=== PATIENT | male | born 1965 | race Caucasian/White ===

== ENCOUNTER 2025-09-24 13:14 | Emergency (ER) | payer OTHER, SELFPAY ==
[2025-09-24] VITALS (9 sets, daily range): BP systolic 126–147; BP diastolic 77–95; PULSE 63; BMI 35.9
[2025-09-24 13:21] LABS: Glucose - Point of Care 136 mg/dl (70-99)
--- NOTE | 2025-09-24 13:37 | ED.GENMED ---
History of Present Illness
<Amy Weeks PA-C - Last Filed: 09/24/25 18:31>
General
Chief Complaint: Fainting/Passed Out
Source: patient
Exam Limitations: none
Time Seen by Provider: 09/24/25 13:28
History of Present Illness
History of Present Illness:
60yoM with no significant past medical history (has not seen a PCP in many years) presenting via EMS for evaluation after a syncopal episode. Patient was driving to work this afternoon when he suddenly became dizzy and felt like the room was
spinning. He pulled over and started vomiting. He then had a syncopal episode. He was awake and alert on EMS arrival. He denies any chest pain or shortness of breath. He had some left ear discomfort earlier today as well as left arm pain for
the past 2 weeks. Dizziness is worse with head movement, particularly if he moves his head to the left.
Past History
<Amy Weeks PA-C - Last Filed: 09/24/25 18:31>
Past History
ED Past Medical History: Hypercholesterolemia, Other (Kidney stone) and Other (diiverticulitis)
ED Past Surgical History: Other (Hernia repair in 2010, colon resection 2012)
Social History
Tobacco: Former smoker
Living: with family
Employment: Employed
Phy Exam
<Amy Weeks PA-C - Last Filed: 09/24/25 18:31>
Physical Exam
Physical Exam:
Vomiting on arrival
General Physical Exam
General Presentation: mild distress
General Skin: warm and dry
General Habitus: normal
General Mental: alert
ENT Exam
ENT Exam: normocephalic
Eye Exam
Eye Exam: PERRL, conjunctiva normal and other (+Resting horizontal nystagmus)
Cardiovascular Exam
Cardiovascular Exam: regular rate/rhythm and no murmur
Pulmonary Exam
Pulmonary Exam: lungs clear, no respiratory distress, no rales, no crackles, no rhonchi and no wheezing
Neurological Exam
Neurological Exam: alert and other (Normal finger to nose and heel to mcmansu bilaterally)
F[place]we Coma Scale
Eye Opening: Spontaneous
Verbal Response: Oriented
Motor Response: Obeys Commands
GCS Total Score: 15
Skin Exam
Skin Exam: normal color and warm/dry
Psychiatric Exam
Psychiatric Exam: normal mood/affect
<Tristan Elizabeth PA-C - Last Filed: 09/24/25 17:55>
Radha Coma Scale
GCS Total Score: 15
Course
<Amy Weeks PA-C - Last Filed: 09/24/25 18:31>
Orders/Labs/Results
Orders:
Orders
09/24/25 13:16
Electrocardiogram (*1) Urgent
Reason for Study: Syncope
EKG- Treatment ONCE
09/24/25 13:37
CT Head W/o Iv Contrast Urgent
Comment:
Reason For Exam: dizziness
0.9% Sodium Chloride 1000 ml [Nss] 1,000 ml IV BOLUS
diazePAM [Valium Injection] 5 mg IV NOW STA
09/24/25 13:38
Cardiac Monitoring- Treatment ONCE
Ondansetron Injectable [Zofran] 4 mg IV NOW STA
09/24/25 13:45
Complete Blood Count/With Diff Urgent
Comprehensive Metabolic Panel Urgent
Troponin I Urgent
09/24/25 14:00
Oxygen Therapy [O2 Therapy] [RESP] Urgent
Nasal Cannula Liter Flow: 2 LPM
Titrate/Wean O2 to maintain O2 sat greater than (%): 93
Wean Oxygen to Pre Admission Baseline Therapy-if applicable: Yes
Contact provider if nasal cannula O2 requirement > 6 liters: Yes
09/24/25 15:06
Pt Eval And Treat Urgent
Treatment: vestibular eval
Activity Level: Out of Bed- Ad Светлана
09/24/25 15:07
EKG- Treatment ONCE
09/24/25 16:45
Electrocardiogram (*1) Urgent
Reason for Study: Syncope
09/24/25 17:00
MethylPREDNISolone PF [Solu-Medrol Pf] 125 mg IV NOW STA
09/24/25 17:14
Troponin I Urgent
Abnormal Lab Results
09/24/25 09/24/25
13:19 13:45
Abs Immat Gran (auto) 0.1 H 10^3/uL
(0-0.05)
Absolute Neuts (auto) 6.7 H 10^3/uL
(1.4-6.5)
Immature Gran % 0.6 H %
(0-0.5)
Carbon Dioxide 19 L mmol/L
(22-30)
Glucose 156 H mg/dl
(70-99)
POC Glucose 136 H mg/dl
(70-99)
09/24/25 13:45
09/24/25 13:45
Vital Signs
Initial and Last Documented VS:
Initial Vital Signs
Temp Pulse Resp BP Pulse Ox
97.5 F 77 18 141/94 93
09/24/25 13:17 09/24/25 13:17 09/24/25 13:17 09/24/25 13:17 09/24/25 13:17
Last Documented Vital Signs
Temp Pulse Resp BP Pulse Ox
97.5 F 77 23 147/95 94
09/24/25 13:17 09/24/25 18:00 09/24/25 17:08 09/24/25 18:00 09/24/25 18:00
Sahnalt;Tristan Elizabeth PA-C - Last Filed: 09/24/25 17:55>
Orders/Labs/Results
Orders:
Orders
09/24/25 13:16
Electrocardiogram (*1) Urgent
Reason for Study: Syncope
EKG- Treatment ONCE
09/24/25 13:37
CT Head W/o Iv Contrast Urgent
Comment:
Reason For Exam: dizziness
0.9% Sodium Chloride 1000 ml [Nss] 1,000 ml IV BOLUS
diazePAM [Valium Injection] 5 mg IV NOW STA
09/24/25 13:38
Cardiac Monitoring- Treatment ONCE
Ondansetron Injectable [Zofran] 4 mg IV NOW STA
09/24/25 13:45
Complete Blood Count/With Diff Urgent
Comprehensive Metabolic Panel Urgent
Troponin I Urgent
09/24/25 14:00
Oxygen Therapy [O2 Therapy] [RESP] Urgent
Nasal Cannula Liter Flow: 2 LPM
Titrate/Wean O2 to maintain O2 sat greater than (%): 93
Wean Oxygen to Pre Admission Baseline Therapy-if applicable: Yes
Contact provider if nasal cannula O2 requirement > 6 liters: Yes
09/24/25 15:06
Pt Eval And Treat Urgent
Treatment: vestibular eval
Activity Level: Out of Bed- Ad Светлана
09/24/25 15:07
EKG- Treatment ONCE
09/24/25 16:45
Electrocardiogram (*1) Urgent
Reason for Study: Syncope
09/24/25 17:00
MethylPREDNISolone PF [Solu-Medrol Pf] 125 mg IV NOW STA
09/24/25 17:14
Troponin I Urgent
Abnormal Lab Results
09/24/25 09/24/25
13:19 13:45
Abs Immat Gran (auto) 0.1 H 10^3/uL
(0-0.05)
Absolute Neuts (auto) 6.7 H 10^3/uL
(1.4-6.5)
Immature Gran % 0.6 H %
(0-0.5)
Carbon Dioxide 19 L mmol/L
(22-30)
Glucose 156 H mg/dl
(70-99)
POC Glucose 136 H mg/dl
(70-99)
09/24/25 13:45
09/24/25 13:45
Vital Signs
Initial and Last Documented VS:
Initial Vital Signs
Temp Pulse Resp BP Pulse Ox
97.5 F 77 18 141/94 93
09/24/25 13:17 09/24/25 13:17 09/24/25 13:17 09/24/25 13:17 09/24/25 13:17
Last Documented Vital Signs
Temp Pulse Resp BP Pulse Ox
97.5 F 77 23 147/95 94
09/24/25 13:17 09/24/25 18:00 09/24/25 17:08 09/24/25 18:00 09/24/25 18:00
<Amy Weeks PA-C - Last Filed: 09/24/25 18:31>
MDM/Problems Addressed
Differential Diagnosis Includes:
60yoM here with vertigo that began while driving. Worse with head movement. Associated with n/v and L ear pain. Had a syncopal episode while vomiting today. He is actively vomiting on initial exam. Resting horizontal nystagmus noted. Differential
diagnosis includes: vestibular neuritis, BPPV, posterior CVA, less likely ACS
Initial ED plan: Check cardiac labs, EKG, and CT head. IV Valium, Zofran, and fluid bolus for symptoms. Will consult PT for vestibular evaluation.
Final assessment: EKG shows NSR without ischemic changes and troponin WNL. Patient with symptomatic improvement after medications but still feeling dizzy. Case signed out to Juarez Elizabeth PA-C pending CT results and PT evaluation.
<Amy Weeks PA-C - Last Filed: 09/24/25 18:31>
*Pulse Oximetry
SaO2: 93
Oxygen Mode of Delivery: Room air
Patient hypoxic: no
*EKG
Interpreted by ED Provider?: Yes
EKG Intrepretation Date: 09/24/25
Heart Rate: 72
Rate: normal
Rhythm: sinus
[place]: normal axis
Interval: normal interval
QRS Pattern: normal QRS
Ischemia: no ischemia
*Critical Care Note
Total Time (30-74mins, 75-104mins- exclusive of procedures): Not Applicable
<Tristan Elizabeth PA-C - Last Filed: 09/24/25 17:55>
Update Note
Update Note:
Assumed care of patient pending repeat troponin and physical therapy evaluation. PT evaluated patient felt as though this is consistent with vestibular neuritis. Will prescribe a steroid. Solu-Medrol given here. Stable for discharge with
follow-up. Patient reexamined and is feeling much better
ED Attending Note
<Amy Weeks PA-C - Last Filed: 09/24/25 18:31>
-
Portions of this chart may have been created with voice recognition software.� Occasional wrong word or��sound alike� substitutions may have occurred due to the inherent limitations of voice recognition software.
Discharge Plan
Departure
Patient Disposition: Home (Routine Discharge)
Date of Disposition: 09/24/25
Time of Disposition: 17:53
Patient with high blood pressure during this ER visit?: No
Discharge Problem:
Acute vestibular neuritis
Instructions: Dizziness, Nonvertigo, (DC)
Prescriptions:
New
prednisone 20 mg tablet
60 mg PO DAILY Qty: 21 0RF
ondansetron 4 mg tablet,disintegrating
4 mg PO Q8H PRN (Reason: nausea and vomiting) Qty: 10 0RF
Referrals:
Destiny Dumont CRNP [Family Provider, General]
Activity Restrictions/Additional Instructions:
Take steroid as directed. Follow-up with your doctor. Return if worse otherwise
Interventions
Interventions:
*Risk Screen - Suicide Last Done: 09/24/25 13:17
*General Assessment Last Done: 09/24/25 13:17
*Neglect/Abuse Screening Last Done: 09/24/25 13:17
*ED- Fall Risk Assessment Last Done: 09/24/25 13:52
*ED COVID-19 Vaccine History Last Done: 09/24/25 13:22
*ED Influenza Vaccine History Last Done: 09/24/25 13:22
*Nursing Disposition Last Done: 09/24/25 18:00
ED- Cardiac Assessment Last Done: 09/24/25 13:40
ED- Neurological Assessment Last Done: 09/24/25 13:40
Discharge Date and Time
Discharge Date/Time: 09/24/25 18:05
Print Language: [id number]
[2025-09-24] MEDS: VALIUM INJECTION 5 MG IV (13:56)
[2025-09-24] MEDS: NSS 1000 IV (13:56)
[2025-09-24] MEDS: ZOFRAN 4 MG IV (13:56)
[2025-09-24 14:08] LABS: Hematocrit 47.8 % (39.0-52.0); Hemoglobin 15.9 g/dL (13.0-18.0); Mean Corp Hgb Conc. 33.3 g/dL (33.0-37.0); Mean Corpuscular Volume 87.1 fL (80.0-94.0); Nucleated Red Blood Cells % 0 % (-); Platelet Count 336 10^3/uL (130-400); Red Cell Dist. Width 13.1 % (11.5-14.5)
[2025-09-24 14:17] LABS: ALT (SGPT) 28 U/L (0-50); AST (SGOT) 25 U/L (17-59); Albumin 4.8 g/dl (3.5-5.0); Alkaline Phosphatase 71 U/L (38-126); Blood Urea Nitrogen 18 mg/dl (9-20); Calcium 9.7 mg/dl (8.4-10.2); Carbon Dioxide 19 mmol/L (22-30); Chloride 105 mmol/L (98-107); Estimated Creatinine Clearance 119 ml/min; Glucose 156 mg/dl (70-99); Potassium 4.3 mmol/L (3.5-5.1); Sodium 135 mmol/L (135-145); Total Protein 7.8 g/dl (6.3-8.2); eGFR > 60.00
[2025-09-24 14:28] LABS: Troponin I < 0.012 ng/ml
[2025-09-24] MEDS: SOLU-MEDROL PF 125 MG IV (17:18)
[2025-09-24 18:00] LABS: Troponin I < 0.012 ng/ml
== END 2025-09-24 18:05 | disposition home or self-care (01) ==
LOC: EMR 13:14
PROVIDERS: Emergency Medicine; Physician Assistant; EMERGENCY PHYSICIAN Student in an Organized Health Care Education/Training Program; FAMILY PHYSICIAN Nurse Practitioner Adult Health
DX: H93.3X9 Disorders of unspecified acoustic nerve (principal); E78.00 Pure hypercholesterolemia, unspecified; Z87.442 Personal history of urinary calculi; Z87.891 Personal history of nicotine dependence; Z90.49 Acquired absence of other specified parts of digestive tract
CPT/HCPCS: 99284; 96374; 96375; 96361; 70450; 80053; 82962; 84484; 85025; 93005